=== PATIENT | female | born 1960 | race Caucasian/White ===

== ENCOUNTER 2018-05-15 03:43 | Inpatient (IN) | payer MEDICARE, BC ==
[2018-05-15] MEDS ORDERED: SODIUM CHLORIDE 0.9% 1,000 ML IV STA (03:53)
--- NOTE | 2018-05-15 03:55 | ED ---
Chest Pain HPI - General Stated Complaint: Chest Pain Time Seen by Provider: 05/15/18 03:51 Source: RN notes reviewed, old records reviewed - History of Present Illness Initial Comments: This is a 58-year-old female the ER for evaluation of chest pain severe anterior chest with diaphoresis and shortness of breath. Patient is having significant chest pain currently continuously. Patient's history of high blood pressure high cholesterol, unknown history of heart disease. Patient's brought to emergency room by EMS who stated patient went to a but appears to be A. fib or possibly ventricular tachycardia with that resolved spontaneously. Patient again continues to complain of chest pain recent change in medications or travel history no sick contacts MD Complaint: chest pain -: hour(s) (1) Onset: during rest Pain Location: substernal, left chest Pain Radiation: LUE Severity: severe Severity scale (1-10): 10 Quality: aching, heaviness Consistency: constant Improves With: nothing Worsens With: nothing Anginal Symptoms: diaphoresis, dyspnea Treatments Prior to Arrival: none - Related Data Allergies Allergy/AdvReac Type Severity Reaction Status Date / Time amoxicillin [From Augmentin] Allergy Rash/Hives Verified 05/15/18 04:07 clavulanic acid Allergy Rash/Hives Verified 05/15/18 04:07 [From Augmentin] erythromycin base Allergy Rash/Hives Verified 05/15/18 04:07 IV Contrast-dye Allergy Anaphylaxis Uncoded 05/15/18 04:07 Review of Systems ROS Statement: Those systems with pertinent positive or pertinent negative responses have been documented in the HPI. ROS Other: All systems not noted in ROS Statement are negative. General Exam General appearance: alert, in no apparent distress Head exam: Present: atraumatic, normocephalic, normal inspection Eye exam: Present: normal appearance, PERRL, EOMI. Absent: scleral icterus, conjunctival injection, periorbital swelling ENT exam: Present: normal exam, mucous membranes moist Neck exam: Present: normal inspection. Absent: tenderness, meningismus, lymphadenopathy Respiratory exam: Present: normal lung sounds bilaterally. Absent: respiratory distress, wheezes, rales, rhonchi, stridor Cardiovascular Exam: Present: regular rate, normal rhythm, normal heart sounds. Absent: systolic murmur, diastolic murmur, rubs, gallop, clicks GI/Abdominal exam: Present: soft, normal bowel sounds. Absent: distended, tenderness, guarding, rebound, rigid Extremities exam: Present: normal inspection, full ROM, normal capillary refill. Absent: tenderness, pedal edema, joint swelling, calf tenderness Back exam: Present: normal inspection Neurological exam: Present: alert, oriented X3, CN II-XII intact Psychiatric exam: Present: normal affect, normal mood Skin exam: Present: warm, dry, intact, normal color. Absent: rash Course Vital Signs 05/15/18 05/15/18 05/15/18 04:01 04:10 04:13 Temperature 98.3 F Pulse Rate 90 92 Pulse Rate [ 93 Farm Service Adviser ] Respiratory 19 18 Rate Blood Pressure 145/77 177/94 O2 Sat by Pulse 97 96 Oximetry 05/15/18 04:19 Temperature Pulse Rate 92 Pulse Rate [ Farm Service Adviser ] Respiratory 16 Rate Blood Pressure 159/79 O2 Sat by Pulse 96 Oximetry - Reevaluation(s) Reevaluation #1: 05/15/18 04:23 Code STEMI is paged on patient arrival to emergency room an EKG received. Chest Pain MDM - MDM 58 female the ER for evaluation of chest pain, positive ST elevated [place], [facility] [employer] called in the emergency room, patient be admitted and taken to [facility] for evaluation treatment Critical Care Time Critical Care Time: Yes Total Critical Care Time: 31 Disposition Clinical Impression: ST elevation myocardial infarction (STEMI) Disposition: ADMITTED IP TO THIS HOSP Condition: Serious Is patient prescribed a controlled substance at d/c from ED?: No Referrals: Zackary Neal MD [Primary Care Provider] - 1-2 days
[2018-05-15] MEDS ORDERED: NITROGLYCERIN SL TABS 0.4 MG TAB SUBLINGUAL PRN (04:06)
[2018-05-15] MEDS ORDERED: HEPARIN SODIUM,PORCINE 5,000 UNIT/ML 1 ML VIAL IV ONE (04:06)
[2018-05-15] MEDS ORDERED: ASPIRIN 81 MG PO STA (04:06)
[2018-05-15] MEDS ORDERED: HEPARIN SODIUM,PORCINE 5,000 UNIT/ML 1 ML VIAL IV PRN (04:06)
[2018-05-15] MEDS ORDERED: HEPARIN SOD,PORK IN 0.45% NACL 25,000 UNIT in 0.45% NACL 1 500ML.BAG IV SCH (04:15)
[2018-05-15 04:19] LABS: Basophils % (A) 0 %; Eosinophils # (A) 0.1 k/uL (0-0.7); Eosinophils % (A) 1 %; HCT 40.3 % (34.0-46.0); HGB 13.2 gm/dL (11.4-16.0); Lymphocytes # (A) 0.8 k/uL (1.0-4.8); Lymphocytes % (A) 7 %; MCH 30.2 pg (25.0-35.0); MCHC 32.9 g/dL (31.0-37.0); Mean Platelet Volume 8.6; Monocytes # (A) 0.1 k/uL (0-1.0); Monocytes % (A) 1 %; Neutrophils # (A) 9.9 k/uL (1.3-7.7); Neutrophils % (A) 90 %; Platelet Count 183 k/uL (150-450); RBC 4.38 m/uL (3.80-5.40); RDW 13.4 % (11.5-15.5)
[2018-05-15 04:27] LABS: Partial Thromboplastin Time 23.6 sec (22.0-30.0); Prothrombin Time 10.2 sec (9.0-12.0)
[2018-05-15 04:30] LABS: ALT 19 U/L (9-52); AST 25 U/L (14-36); Albumin 4.2 g/dL (3.5-5.0); Alkaline Phosphatase 74 U/L (38-126); Anion Gap 14 mmol/L; Blood Urea Nitrogen 17 mg/dL (7-17); Calcium 9.5 mg/dL (8.4-10.2); Carbon Dioxide 16 mmol/L (22-30); Chloride 105 mmol/L (98-107); Glucose 221 mg/dL (74-99); Lipase 50 U/L (23-300); Magnesium 2.1 mg/dL (1.6-2.3); Sodium 135 mmol/L (137-145); Total Bilirubin 0.3 mg/dL (0.2-1.3); Total Protein 7.3 g/dL (6.3-8.2)
--- NOTE | 2018-05-15 04:30 | XR ---
EXAMINATION TYPE: XR chest 1V DATE OF EXAM: 05/15/2018 COMPARISON: NONE HISTORY: Chest pain TECHNIQUE: Single frontal view of the chest is obtained. FINDINGS: There is no heart failure nor confluent pneumonic infiltrate. Costophrenic angles are dante r. There are chest leads. There is mild coarsening of the lung markings. IMPRESSION: Possible minimal fibrosis. No heart failure.
[2018-05-15 04:41] LABS: Creatine Kinase MB 0.6 ng/mL (0.0-2.4)
[2018-05-15] MEDS ORDERED: SODIUM CHLORIDE 0.9% 1,000 ML IV ONE (04:50)
[2018-05-15] MEDS ORDERED: IV FLUID CONTINUATION 1,000 ML IV ONE (04:50)
[2018-05-15] MEDS ORDERED: methylPREDNISolone SOD SUCCI 125 MG/2 ML VIAL ONE (04:51)
[2018-05-15] MEDS ORDERED: MIDAZOLAM 2 MG/2 ML VIAL ONE (04:52)
[2018-05-15] MEDS ORDERED: LIDOCAINE 1% INJ 10MG/ML (20 ML MDV) ONE (04:52)
[2018-05-15] MEDS ORDERED: fentaNYL (PF) 50 MCG/ML 2 ML AMP ONE (04:52)
[2018-05-15 04:59] LABS: Troponin I 0.07 ng/mL (0.000-0.034)
[2018-05-15] MEDS ORDERED: diphenhydrAMINE 50 MG/ML 1 ML VIAL IVP ONE (05:00)
[2018-05-15] MEDS ORDERED: methylPREDNISolone SOD SUCCI 125 MG/2 ML VIAL IVP ONE (05:01)
[2018-05-15] MEDS ORDERED: MIDAZOLAM 2 MG/2 ML VIAL IVP ONE (05:02)
[2018-05-15] MEDS ORDERED: LIDOCAINE 1% INJ 10MG/ML (20 ML MDV) SQ ONE (05:03)
[2018-05-15] MEDS ORDERED: IOPAMIDOL-370 125ML BTL INJ ONE (05:23)
[2018-05-15] MEDS ORDERED: RX INFO: IV CONTRAST WAS GIVEN 1 EACH MISC MISCELLANE PRN (05:27)
[2018-05-15] MEDS ORDERED: SODIUM CHLORIDE 0.9% 1,000 ML IV SCH (05:30)
--- NOTE | 2018-05-15 05:41 | P.CRDCN ---
History of Present Illness Consult date: 05/15/18 Chief complaint: Chest pressure History of present illness: This is a 58-year-old female patient who was brought by ambulance to the emergency room because of "heart pounding" and "chest discomfort". The patient was in her usual state of health till last night when she was sitting at home with her family and suddenly she did develop an episode of heart pounding in her chest associated was chest pressure as well as sweating. The chest pressure radiated to her back. It was severe enough for her to call the ambulance who arrived on scene and performed an EKG on the patient which revealed possible atrial fibrillation. I did review the EKG which was not a 12 please EKG from ambulance and that showed wide-complex tachycardia with irregularity and extensive baseline artifact and is is difficult to tell if the patient did have atrial fibrillation on it. Anyway subsequently the patient was transferred to the emergency room here where the subsequent EKG revealed sinus rhythm with [address] segment elevation in the anterior lead and because of that the patient was called as a STEMI. She emergently underwent a heart catheterization which revealed mild triple-vessel coronary artery disease. The procedure was performed from the right groin. The patient does have hypertension. She was seen in the past for intermittent episodes of heart racing and fluttering and she underwent a heart catheterization about 15 years ago at [facility] and according to her that was unremarkable. She does have significant history of smoking and she continues to smoke but she is working on smoking cessation. She does have fairly significant family history of coronary artery disease in both of her parents. Past Medical History Past Medical History: Fibromyalgia, Hypertension Additional Past Medical History / Comment(s): chronic back pain, DDD History of Any Multi-Drug Resistant Organisms: None Reported Past Surgical History: Back Surgery Past Psychological History: No Psychological Hx Reported Smoking Status: Current every day smoker Past Alcohol Use History: None Reported Past Drug Use History: None Reported Medications and Allergies Home Medications Medication Instructions Recorded Confirmed Type Benazepril HCl 40 mg PO 05/15/18 History Cyclobenzaprine [Flexeril] 10 mg PO TID 05/15/18 05/15/18 History FLUoxetine HCL [PROzac] 40 mg PO DAILY 05/15/18 05/15/18 History Metoprolol Tartrate [Lopressor] 50 mg PO TID 05/15/18 05/15/18 History Morphine Sulfate [Ms Contin] 30 mg PO Q8HR 05/15/18 05/15/18 History Allergies Allergy/AdvReac Type Severity Reaction Status Date / Time amoxicillin [From Augmentin] Allergy Rash/Hives Verified 05/15/18 04:07 clavulanic acid Allergy Rash/Hives Verified 05/15/18 04:07 [From Augmentin] erythromycin base Allergy Rash/Hives Verified 05/15/18 04:07 IV Contrast-dye Allergy Anaphylaxis Uncoded 05/15/18 04:07 Physical Exam Vitals: Vital Signs Temp Pulse Pulse Resp BP Pulse Ox 05/15/18 04:36 98.3 F 91 18 161/79 96 05/15/18 04:31 92 18 157/77 94 L 05/15/18 04:19 92 16 159/79 96 05/15/18 04:13 92 18 177/94 96 05/15/18 04:10 93 05/15/18 04:01 98.3 F 90 19 145/77 97 Intake and Output 05/14/18 05/14/18 05/15/18 14:59 22:59 06:59 Other: Weight 86.183 kg - Constitutional General appearance: no acute distress - Respiratory Respiratory: bilateral: CTA - Cardiovascular Rhythm: regular Heart sounds: normal: S1, S2 Abnormal Heart Sounds: systolic murmur Results 05/15/18 03:55 05/15/18 03:55 Cardiac Enzymes 05/15/18 05/15/18 Range/Units 03:55 03:55 AST 25 (14-36) U/L CK-MB (CK-2) 0.6 (0.0-2.4) ng/mL Troponin I 0.070 H* (0.000-0.034) ng/mL Coagulation 05/15/18 Range/Units 03:55 PT 10.2 (9.0-12.0) sec APTT 23.6 (22.0-30.0) sec CBC 05/15/18 Range/Units 03:55 WBC 11.0 H (3.8-10.6) k/uL RBC 4.38 (3.80-5.40) m/uL Hgb 13.2 (11.4-16.0) gm/dL Hct 40.3 (34.0-46.0) % Plt Count 183 (150-450) k/uL Comprehensive Metabolic Panel 05/15/18 Range/Units 03:55 Sodium 135 L (137-145) mmol/L Potassium 4.0 (3.5-5.1) mmol/L Chloride 105 (98-107) mmol/L Carbon Dioxide 16 L (22-30) mmol/L BUN 17 (7-17) mg/dL Creatinine 0.59 (0.52-1.04) mg/dL Glucose 221 H (74-99) mg/dL Calcium 9.5 (8.4-10.2) mg/dL AST 25 (14-36) U/L ALT 19 (9-52) U/L Alkaline Phosphatase 74 (38-126) U/L Total Protein 7.3 (6.3-8.2) g/dL Albumin 4.2 (3.5-5.0) g/dL Current Medications Generic Name Dose Route Start Last Admin Trade Name Freq PRN Reason Stop Dose Admin Aspirin 325 mg 05/16/18 09:00 Aspirin PO DAILY [facility] Atorvastatin Calcium 80 mg 05/15/18 09:00 Lipitor PO DAILY [facility] Heparin Sodium (Porcine) 0 unit 05/15/18 04:06 Heparin IV Q6HR PRN Low PTT Protocol Sodium Chloride 1,000 mls @ 100 mls/hr 05/15/18 03:53 05/15/18 04:17 Saline 0.9% IV 05/15/18 13:52 100 mls/hr .Q10H STA Administration Heparin Sodium/Sodium Chloride 500 mls @ 20 mls/hr 05/15/18 04:15 05/15/18 04 :16 25,000 unit/ Sodium Chloride IV 11.6 units/kg/hr .Q24H JOE 20 mls/hr Administration Protocol Sodium Chloride 1,000 mls @ 100 mls/hr 05/15/18 04:15 Saline 0.9% IV .Q10H JOE Metoprolol Tartrate 25 mg 05/15/18 09:00 Lopressor PO BID JOE Nitroglycerin 0.4 mg 05/15/18 04:06 Nitrostat SUBLINGUAL Q5M PRN Chest Pain Intake and Output 05/14/18 05/14/18 05/15/18 14:59 22:59 06:59 Other: Weight 86.183 kg Patient Weight 05/15/18 06:59 Weight 86.183 kg 05/15/18 03:55 05/15/18 03:55 Assessment and Plan Assessment: Assessment #1 chest discomfort which was resolved #2 possible atrial fibrillation. The EKG from ambulance was of poor quality with extensive artifact. #3 mild nonobstructive coronary artery disease #4 hypertension #5 significant history of smoking Plan #1 continue the current medical regimen #2 monitor the patient for any arrhythmia. She might benefit from either an event monitor as an outpatient or a loop recorder #3 obtain an echocardiogram was Doppler to assess the LV function #4 follow-up with the patient. Thank you for allowing us participate in her care
[2018-05-15 06:05] LABS: Glucose,Whole Blood 166 mg/dL (75-99)
[2018-05-15 06:52] VITALS: BMI 33.8
--- NOTE | 2018-05-15 08:52 | CC ---
CARDIAC CATHETERIZATION REPORT DATE OF SERVICE: May 15, 2018 PERFORMING PHYSICIAN: Homero Bennett MD, publications sales representative. PROCEDURE PERFORMED: 1. Selective right and left coronary angiogram. 2. Left heart catheterization. INDICATION: This is a pleasant 58-year-old female patient who was brought to the emergency room by ambulance after she did have an episode of heart pounding as she describes it associated with the pressure on the chest. The patient was diagnosed with acute ST elevation myocardial infarction and because of that, a heart catheterization was advised. The patient did have about [address]-segment depression in the anterior leads without any reciprocal changes. APPROACH: Right common femoral artery. COMPLICATION: None. LEVEL OF SEDATION: Moderate with sedation length of 18 minutes. PROCEDURE DESCRIPTION: After obtaining an informed consent, the patient was brought to cardiac brick and blocker aid labor. The right common femoral artery was cannulated using micropuncture technique and a micropuncture wire passed easily. Then I placed a 6-Dutch sheath in the right common femoral artery. After that, I did selective right and left coronary angiogram using JR4 and JL4 catheters. Left heart catheterization was performed using 6-Dutch pigtail catheter. The procedure was completed without any complication. SELECTIVE CORONARY ANGIOGRAM: 1. The right coronary artery is a large caliber vessel and it is a dominant vessel. It does have mild disease in the midportion. It distally bifurcates into PDA and PLV branches, both are angiographically normal. 2. The left main is angiographically normal. It bifurcates into the circumflex and left anterior descending artery. 3. The left circumflex is a large caliber vessel. It is a nondominant vessel. The proximal circumflex is normal and gives rise into a large first OM branch which distally has disease appeared to be in the range of 30% to. 4. 40%. The circumflex continued after that as a small-caliber vessel in the AV groove. 5. The LAD: The proximal LAD appeared to have mild disease only. It gives rise into a large first diagonal branch which has ostial disease appeared to be in the range of 30% to 40%. The mid LAD is normal and gives rise into a second diagonal branch which has also ostial disease appeared to be in the range of 30% to 40%. 6. The LAD distally appeared to be angiographically normal. 7. HEMODYNAMICS: The left ventricular end-diastolic pressure was about 12-14 mmHg without any significant gradient across the aortic valve. CONCLUSION: 1. Mild disease involving the right coronary artery. 2. Mild disease involving the left main coronary artery appeared to be in the range of 20% to 30%. 3. Mild disease involving the left circumflex also appeared to be in the range of 20- 30%. 4. Mild disease involving the first and second diagonal branch of the LAD as well. POSTPROCEDURE MANAGEMENT: 1. Maximize medical treatment. 2. Aggressive cholesterol control. 3. Follow up with the patient. MMODL / IJN: [id number] /
[2018-05-15] MEDS: SODIUM CHLORIDE 0.9% 1,000 ML IV SCH ×2 (09:13→16:28)
[2018-05-15] MEDS: ACETAMINOPHEN TAB 500 MG TAB PO PRN ×2 (09:13→21:48)
[2018-05-15] MEDS: ATORVASTATIN 80 MG TAB PO SCH (09:13)
[2018-05-15] MEDS: FLUoxetine HCL 20 MG CAP PO SCH (09:14)
[2018-05-15] MEDS: METOPROLOL TARTRATE 25 MG TAB PO SCH ×2 (09:14→21:48)
[2018-05-15] MEDS: MORPHINE SULFATE ER 30 MG TABLET PO SCH ×2 (09:15→16:27)
[2018-05-15] MEDS: CYCLOBENZAPRINE 10 MG TAB PO SCH ×3 (10:35→21:48)
[2018-05-15 11:52] LABS: Mean Platelet Volume 8.1; Platelet Count 200 k/uL (150-450)
[2018-05-15] MEDS ORDERED: NAPROXEN 250 MG TAB PO STA (12:17)
[2018-05-15 12:26] LABS: Creatine Kinase MB 1.1 ng/mL (0.0-2.4)
[2018-05-15 12:31] LABS: Troponin I 0.037 ng/mL (0.000-0.034)
[2018-05-15] MEDS: diphenhydrAMINE 25 MG CAP PO PRN (12:34)
--- NOTE | 2018-05-15 15:13 | HP ---
HISTORY AND PHYSICAL SUBJECTIVE: This is a white female. She is status post cardiac catheterization for chest pain, which was a normal heart catheterization. She is complaining of headaches due to possible fibromyalgia or neck pain. She has severe in her neck and throughout her back, she states. She is also concerned about PAD issue with her legs that is different than her normal neuropathy pain down her legs. She had arrhythmia when with EMS. Cardiology took her for a heart catheterization from the ER. She is back on the floor at this time, wanting something for a headache. Apparently a chest x-ray was negative, also. ALLERGIES: 1. AUGMENTIN. 2. ERYTHROMYCIN. REVIEW OF SYSTEMS: Fourteen-point review of systems negative except for fibromyalgia pain. She is a well female in no acute distress. CARDIOVASCULAR: S1, S2. LUNGS: Clear. GI: Soft. HEMATOLOGY: Negative Homans. PSYCH: Fair mood and affect. NEUROLOGIC: Alert and oriented x3. SKIN: Warm, dry, intact. VITAL SIGNS: Temperature 98.3, pulse 90 to 92, respiratory rate 18 to 20, and blood pressure 140s to 170s over 70s to 90s. ASSESSMENT: 1. Possible [id number]-vassblmnu myocardial infarction. 2. Fibromyalgia. 3. Chronic headaches secondary to possible cervical neuritis. 4. Diabetes mellitus. Give Tylenol for headaches. Continue with current treatment, medicine, muscle relaxants, cholesterol pills. Please see further orders. ICU time 45 minutes. MMARTIEL / IJN: [id number] /
[2018-05-15 16:53] LABS: Creatine Kinase MB 1.4 ng/mL (0.0-2.4)
[2018-05-15 16:54] LABS: Troponin I 0.04 ng/mL (0.000-0.034)
[2018-05-15] MEDS ORDERED: SODIUM CHLORIDE 0.65% NASAL SPRAY 44 ML BTL NASAL PRN (21:54)
[2018-05-16] MEDS: MORPHINE SULFATE ER 30 MG TABLET PO SCH ×4 (00:05→23:11)
[2018-05-16] MEDS: diphenhydrAMINE 25 MG CAP PO PRN (00:09)
[2018-05-16] MEDS: LISINOPRIL 20 MG TAB PO SCH (06:04)
[2018-05-16] MEDS: SODIUM CHLORIDE 0.9% 1,000 ML IV SCH ×3 (06:04→21:05)
[2018-05-16 06:49] LABS: Mean Platelet Volume 8.3; Platelet Count 189 k/uL (150-450)
[2018-05-16 07:08] LABS: Cholesterol 213 mg/dL (<200); HDL Cholesterol 55 mg/dL (40-60); LDL Cholesterol,Calculated 132 mg/dL (0-99); Triglycerides 131 mg/dL (<150)
[2018-05-16] MEDS: ATORVASTATIN 80 MG TAB PO SCH (08:19)
[2018-05-16] MEDS: METOPROLOL TARTRATE 25 MG TAB PO SCH (08:20)
[2018-05-16] MEDS: ASPIRIN 325 MG TAB PO SCH (08:22)
[2018-05-16] MEDS: FLUoxetine HCL 20 MG CAP PO SCH (08:26)
[2018-05-16] MEDS: CYCLOBENZAPRINE 10 MG TAB PO SCH ×3 (08:26→21:11)
--- NOTE | 2018-05-16 08:53 | ECHOF ---
Referral Reason:chest pain/ afib, s/p heart cath MEASUREMENTS -------- HEIGHT: 167.6 cm WEIGHT: 94.8 kg BP: 151/80 RVIDd: 2.1 cm (< 3.3) IVSd: 1.6 cm (0.6 - 1.1) LVIDd: 5.0 cm (3.9 - 5.3) LVPWd: 1.5 cm (0.6 - 1.1) IVSs: 2.0 cm LVIDs: 3.2 cm LVPWs: 1.7 cm LAESV Index (A-L): 32.74 ml/m Ao Diam: 3.1 cm (2.0 - 3.7) AV Cusp: 2.0 cm (1.5 - 2.6) LA Diam: 3.6 cm (2.7 - 3.8) MV EXCURSION: 12.039 mm (> 18.000) MV EF SLOPE: 89 mm/s (70 - 150) EPSS: 0.5 cm MV E Nayan: 1.07 m/s MV DecT: 164 ms MV A Nayan: 0.95 m/s MV E/A Ratio: 1.13 RAP: 5.00 mmHg RVSP: 22.84 mmHg FINDINGS -------- Sinus rhythm. This was a technically good study. The left ventricular size is normal. There is moderate concentric left ventricular hypertrophy. O verall left ventricular systolic function is normal with, an EF between 55 - 60 %. The right ventricle is normal in size and function. The left atrium is normal in size. The right atrium is normal in size. Aortic valve is trileaflet and is mildly thickened. The mitral valve leaflets are mildly thickened. Mild mitral regurgitation is present. Mild tricuspid regurgitation present. The right ventricular systolic pressure, as measured by Doppl er, is 22.84mmHg. Pulmonic valve appears structurally normal. The aortic root size is normal. Normal inferior vena cava with normal inspiratory collapse consistent with estimated right atrial pre ssure of 5 mmHg. The pericardium is normal. CONCLUSIONS -------- 1. Sinus rhythm. 2. This was a technically good study. 3. The left ventricular size is normal. 4. There is moderate concentric left ventricular hypertrophy. 5. Overall left ventricular systolic function is normal with, an EF between 55 - 60 %. 6. The right ventricle is normal in size and function. 7. The left atrium is normal in size. 8. The right atrium is normal in size. 9. Aortic valve is trileaflet and is mildly thickened. 10. The mitral valve leaflets are mildly thickened. 11. Mild mitral regurgitation is present. 12. Mild tricuspid regurgitation present. 13. The right ventricular systolic pressure, as measured by Doppler, is 22.84mmHg. 14. Pulmonic valve appears structurally normal. 15. The aortic root size is normal. 16. Normal inferior vena cava with normal inspiratory collapse consistent with estimated right atrial pressure of 5 mmHg. 17. The pericardium is normal. NEGATIVE CUTTER: Belén Henao RDCS
--- NOTE | 2018-05-16 14:44 | P.PN ---
Subjective Progress Note Date: 05/16/18 This patient is admitted to the hospital with altered patient's lasting about an hour. According to the EKG taken by the paramedics, patient was jackson fibrillation. Patient was seen and evaluated by Dr. Fischer. Apparently the rhythm strips had several artifacts and could not be properly interpreted. Patient had wide complex tachycardia. Subsequently, patient had a cardiac catheterization and was not found to have any significant obstructive disease. There are 20-30% stenosis of the left main and also circumflex. Patient is advised to maximal medical therapy. She was put on JUAN RAMON inhibitor and beta octaviano. Patient's troponin was mildly elevated and could be secondary to supply and demand mismatch. Patient wants to have a definite diagnosis. Patient could have event monitor and if that doesn't show any significant arrhythmias, may be candidate for loop recorder insertion. Meanwhile we'll continue with the beta octaviano and JUAN RAMON inhibitor hours. Her blood pressure is not well controlled. I will add Norvasc 5 mg Objective - Vital Signs Vital signs: Vital Signs Temp 96.4 F L 05/16/18 12:00 Pulse 71 05/16/18 12:00 Resp 18 05/16/18 12:00 BP 165/76 05/16/18 12:00 Pulse Ox 96 05/16/18 12:00 Intake & Output 05/15/18 05/16/18 05/16/18 18:59 06:59 18:59 Intake Total 1560 360 Output Total 600 Balance 960 360 Weight 95.1 kg 91.6 kg Intake: IV 1200 Sodium Chloride 0.9% 1, 1200 000 ml @ 100 mls/hr IV . Q10H [facility] Rx#:[id number] Oral 360 360 Output: Urine 600 Other: Voiding Method Toilet Toilet Toilet # Voids 1 2 2 - Exam GENERAL EXAM: Patient is alert and oriented and doesn't appear to be in any acute distress HEENT: Normocephalic. Normal reaction of pupils, equal size, normal range of extraocular motion. No erythema or exudates in the throat. NECK: No masses, no nuchal rigidity. CHEST: No chest wall deformity. LUNGS: Equal air entry with no crackles or wheeze. HEART: S1 and S2 normal with no audible mumurs or gallops. Regular rhythm, femorals equal on both sides.. ABDOMEN: No hepatosplenomegaly, normal bowel sounds, no guarding or rigidity. SKIN: No rashes CENTRAL NERVOUS SYSTEM: No focal deficits. EXTREMITIES: No cyanosis, clubbing or edema. - Labs CBC & Chem 7: 05/16/18 05:26 05/15/18 03:55 Labs: Abnormal Lab Results - Last 24 Hours (Table) 05/15/18 05/16/18 Range/Units 16:02 05:26 Troponin I 0.040 H* (0.000-0.034) ng/mL Cholesterol 213 H (<200) mg/dL LDL Cholesterol, Calc 132 H (0-99) mg/dL Assessment and Plan (1) Cardiac arrhythmia Current Visit: Yes Status: Acute Code(s): I49.9 - CARDIAC ARRHYTHMIA, UNSPECIFIED SNOMED Code(s): 938857189 (2) Troponin level elevated Current Visit: Yes Status: Acute Code(s): R74.8 - ABNORMAL LEVELS OF OTHER SERUM ENZYMES SNOMED Code(s): 349651384 (3) Atrial fibrillation Current Visit: Yes Status: Acute Code(s): I48.91 - UNSPECIFIED ATRIAL FIBRILLATION SNOMED Code(s): 92762804 Plan: Patient is admitted with elevated troponin and palpitations. There is suspected atrial fibrillation from the monitor strips from paramedics. Cardiac cath did not reveal any significant obstructive disease. There is mild plaque in the left main and circumflex. Patient wants definitive diagnosis. She is going to have event monitor. If given monitor doesn't reveal any arrhythmias, may be considered for a loop recorder insertion
[2018-05-16] MEDS: METOPROLOL TARTRATE 50 MG TAB PO SCH ×2 (15:22→21:11)
[2018-05-16] MEDS: amLODIPine 5 MG TAB PO SCH (15:22)
[2018-05-16 16:33] LABS: Glucose,Whole Blood 133 mg/dL (75-99)
[2018-05-16] MEDS: FAMOTIDINE 20 MG TAB PO SCH (21:11)
[2018-05-16] MEDS: HEPARIN SODIUM,PORCINE 5,000 UNIT/ML 1 ML VIAL SQ SCH (21:11)
--- NOTE | 2018-05-16 23:41 | PN ---
PROGRESS NOTE DATE OF SERVICE: 05/16/2018. HISTORY: She has been hemodynamically stable. She denies any chest pain today. The patient has had no further arrhythmias while in the hospital. PHYSICAL EXAMINATION: Respiratory rate is 18, pulse rate is 73, temperature 98.1, blood pressure 147/67, O2 saturation on room air is 97%. HEENT is unremarkable. Chest is clear. Cardiovascular system is S1, S2. Abdomen is soft. There is no pedal edema. IMPRESSION: 1. Suspected atrial fibrillation. 2. Chest pain for which the patient has been seen by Cardiology. 3. Obesity with possible obstructive sleep apnea that may be contributing to overall symptomatology. PLAN: At this point in time, plan is for a possible event monitor. Cardiac catheterization done shows mild coronary artery disease in the right coronary and left coronary, but not clinically significant in any of her vessels. Continue current medications which were reviewed. Increase her activity level. Discharge planning is for tomorrow. She is otherwise stable. MMODL / IJN: [id number] /
[2018-05-17] MEDS: SODIUM CHLORIDE 0.9% 1,000 ML IV SCH (04:09)
[2018-05-17 06:38] LABS: Mean Platelet Volume 8.6; Platelet Count 158 k/uL (150-450)
[2018-05-17 07:07] LABS: Anion Gap 4 mmol/L; Blood Urea Nitrogen 20 mg/dL (7-17); Calcium 8.6 mg/dL (8.4-10.2); Carbon Dioxide 27 mmol/L (22-30); Chloride 110 mmol/L (98-107); Glucose 88 mg/dL (74-99); Magnesium 2.3 mg/dL (1.6-2.3); Potassium 4.8 mmol/L (3.5-5.1); Sodium 141 mmol/L (137-145)
[2018-05-17] MEDS ORDERED: NA PHOS,M-B/NA PHOS,DI-BA 133 ML ENEMA RECTAL ONE (07:15)
[2018-05-17] MEDS: FAMOTIDINE 20 MG TAB PO SCH ×2 (09:33→21:35)
[2018-05-17] MEDS: MORPHINE SULFATE ER 30 MG TABLET PO SCH ×3 (09:33→23:38)
[2018-05-17] MEDS: amLODIPine 5 MG TAB PO SCH ×2 (09:34→21:35)
[2018-05-17] MEDS: ATORVASTATIN 80 MG TAB PO SCH (09:34)
[2018-05-17] MEDS: CYCLOBENZAPRINE 10 MG TAB PO SCH ×3 (09:34→21:36)
[2018-05-17] MEDS: METOPROLOL TARTRATE 50 MG TAB PO SCH ×2 (09:34→21:36)
[2018-05-17] MEDS: ASPIRIN 325 MG TAB PO SCH (09:34)
[2018-05-17] MEDS: LISINOPRIL 20 MG TAB PO SCH (09:34)
[2018-05-17] MEDS: FLUoxetine HCL 20 MG CAP PO SCH (09:35)
[2018-05-17] MEDS: HEPARIN SODIUM,PORCINE 5,000 UNIT/ML 1 ML VIAL SQ SCH ×2 (09:35→21:35)
[2018-05-17] MEDS: CHLORTHALIDONE 25 MG TAB PO SCH (15:40)
--- NOTE | 2018-05-17 16:26 | PN ---
PROGRESS NOTE This patient's medical record is reviewed. The rhythm strips from EMS are also reviewed. Patient was brought to the hospital with chest pain and palpitations. The monitor strip obtained by EMS is suggestive of wide QRS complex tachycardia. Whether that represents atrial fibrillation with a rapid rate versus ventricular tachycardia is unclear. This patient has been having intermittent episodes of palpitations and shortness of breath for many years. Patient's cardiac catheterization did not show any significant abnormality. Patient remains stable. There was no evidence of acute myocardial infarction. I will increase the dose of Lopressor to 100 mg b.i.d. Patient will be given a 30-day event monitor. We will also make an appointment with Dr. Hubbard for further evaluation in view of the significant symptomatic palpitations. MMODL / IJN: [id number] /
--- NOTE | 2018-05-17 22:03 | PN ---
PROGRESS NOTE This patient came to the hospital with wide QRS complex tachycardia, atrial fibrillation. Cardiac catheterization was normal. No myocardial infarction. Lopressor has been increased to 100 b.i.d. per Cardiology. A 30-day event monitor has been ordered. She will follow up as an outpatient. Kosher Dietary Service Supervisor saw her. Blood pressure 147/67, oxygen 97% on room air, pulse 73, respiratory rate 18, temperature 98.1. Abdomen is soft. Chest is clear. CARDIAC: S1, S2. ASSESSMENT: 1. Atrial fibrillation. 2. Atypical chest pain. 3. Obesity. 4. Obstructive sleep apnea. She will be discharged home tomorrow if she is medically stable from pulmonary and cardiac points of view. MMODL / IJN: [id number] /
[2018-05-18] MEDS: diphenhydrAMINE 25 MG CAP PO PRN ×2 (01:50→23:15)
[2018-05-18] MEDS ORDERED: MAGNESIUM HYDROXIDE 2,400 MG/10 ML CUP PO PRN (07:12)
[2018-05-18] MEDS: FAMOTIDINE 20 MG TAB PO SCH ×2 (10:30→20:12)
[2018-05-18] MEDS: MORPHINE SULFATE ER 30 MG TABLET PO SCH ×3 (10:30→23:15)
[2018-05-18] MEDS: ATORVASTATIN 80 MG TAB PO SCH (10:31)
[2018-05-18] MEDS: CYCLOBENZAPRINE 10 MG TAB PO SCH ×3 (10:31→20:11)
[2018-05-18] MEDS: CHLORTHALIDONE 25 MG TAB PO SCH (10:31)
[2018-05-18] MEDS: ASPIRIN 81 MG PO SCH (10:31)
[2018-05-18] MEDS: amLODIPine 5 MG TAB PO SCH ×2 (10:31→20:11)
[2018-05-18] MEDS: LISINOPRIL 20 MG TAB PO SCH (10:31)
[2018-05-18] MEDS: FLUoxetine HCL 20 MG CAP PO SCH (10:32)
[2018-05-18] MEDS: HEPARIN SODIUM,PORCINE 5,000 UNIT/ML 1 ML VIAL SQ SCH ×2 (10:32→20:12)
[2018-05-18] MEDS: METOPROLOL TARTRATE 50 MG TAB PO SCH ×2 (10:35→20:12)
--- NOTE | 2018-05-18 16:17 | P.PN ---
Subjective Progress Note Date: 05/18/18 Is a 58-year-old female brought to the hospital with symptoms of chest discomfort. She does have a history of hypertension, nicotine dependence , and family history of premature coronary artery disease. She was taken to the cardiac catheterization lab on Thursday, found to have mild disease involving the RCA, left main, circumflex, and first and second diagonal branch of the LAD, medical therapy was advised. The patient's monitor strips have been reviewed, it appears that the ones obtained by EMS were suggestive of a wide complex tachycardia which could #represent A. fib with RVR versus ventricular tachycardia which is actually unclear at this time. Patient had no evidence of an acute myocardial infarction. At the time of discharge home, patient will be given an event monitor. She feels well today, no chest pain, no palpitations, no arrhythmias noted on the monitor. Medically she stable. Objective - Vital Signs Vital signs: Vital Signs Temp 97.7 F 05/18/18 12:00 Pulse 65 05/18/18 12:00 Resp 18 05/18/18 12:00 BP 147/70 05/18/18 12:00 Pulse Ox 94 L 05/18/18 12:00 Intake & Output 05/17/18 05/18/18 05/18/18 18:59 06:59 18:59 Intake Total 720 360 Output Total 500 Balance 220 360 Weight 91.1 kg Intake: IV 0 Sodium Chloride 0.9% 1, 0 000 ml @ 100 mls/hr IV . Q10H [facility] Rx#:[id number] Oral 720 360 Output: Urine 500 Other: Voiding Method Toilet Toilet Toilet # Voids 1 1 2 - Exam PHYSICAL EXAMINATION: GENERAL: 58-year-old female in no acute distress at the time of my examination HEENT: Head is atraumatic, normocephalic. Pupils equal, round. Sclera anicteric. Conjunctiva are clear. Mucous membranes of the mouth are moist. Neck is supple. There is no elevated jugular venous pressure.] bruit is heard. HEART EXAMINATION: Heart S1, S2 normal. No murmur or gallop heard. CHEST EXAMINATION: Lungs are clear to auscultation and precussion. No chest wall tenderness is noted on palpation or with deep breathing. ABDOMEN: Soft, nontender. Bowel sounds are heard. No organomegaly noted. EXTREMITIES: 2+ peripheral pulses with no evidence of peripheral edema and no calf tenderness noted. NEUROLOGIC patient is awake, alert and oriented ?-3. . - Labs CBC & Chem 7: 05/17/18 06:05 05/17/18 06:05 Assessment and Plan Plan: Assessment #1 chest discomfort, no evidence of an acute myocardial infarction #2 wide complex tachycardia, either atrial fibrillation or ventricular tachycardia #3 mild nonobstructive coronary artery disease #4 hypertension #5 significant history of smoking Plan Will monitor the patient for another 24 hours, plan for possible discharge home in the morning. At the time of discharge we do recommend the patient have a 30 day event monitor. Follow-up appointment in the office post discharge. DNP note has been reviewed, I agree with a documented findings and plan of care. Patient was seen and examined.
--- NOTE | 2018-05-18 23:57 | PN ---
PROGRESS NOTE HISTORY: Awaiting cardiology clearance prior to being discharged. She is having some chest discomfort. She had a wide complex tachycardia and atrial fibrillation. Was given an event monitor. Awaiting for possible discharge. PHYSICAL EXAM: Temp 97.7, pulse 60s, respiratory rate 16 to 18, blood pressure 147/70, O2 saturation 94% on room air. ASSESSMENT: 1. Atypical chest discomfort. 2. Wide complex tachycardia, either atrial fibrillation or ventricular tachycardia. 3. Mild nonobstructive coronary artery disease. 4. Hypertension. PLAN: Monitor for another 24 hours on the monitor. If no significant arrhythmias, Cardiology will clear in the morning. MMODL / IJN: [id number] /
[2018-05-19 09:10] VITALS: RESP 16; TEMP 97.7
[2018-05-19] MEDS: amLODIPine 5 MG TAB PO SCH (09:12)
[2018-05-19] MEDS: ASPIRIN 81 MG PO SCH (09:12)
[2018-05-19] MEDS: CHLORTHALIDONE 25 MG TAB PO SCH (09:12)
[2018-05-19] MEDS: MORPHINE SULFATE ER 30 MG TABLET PO SCH ×2 (09:13→16:55)
[2018-05-19] MEDS: CYCLOBENZAPRINE 10 MG TAB PO SCH ×2 (09:13→16:56)
[2018-05-19] MEDS: FAMOTIDINE 20 MG TAB PO SCH (09:13)
[2018-05-19] MEDS: METOPROLOL TARTRATE 50 MG TAB PO SCH (09:13)
[2018-05-19] MEDS: FLUoxetine HCL 20 MG CAP PO SCH (09:13)
[2018-05-19] MEDS: ATORVASTATIN 80 MG TAB PO SCH (09:14)
[2018-05-19] MEDS: LISINOPRIL 20 MG TAB PO SCH (09:14)
[2018-05-19] MEDS: HEPARIN SODIUM,PORCINE 5,000 UNIT/ML 1 ML VIAL SQ SCH (09:14)
--- NOTE | 2018-05-19 12:30 | P.PN ---
Subjective Progress Note Date: 05/19/18 Is a 58-year-old female brought to the hospital with symptoms of chest discomfort. She does have a history of hypertension, nicotine dependence , and family history of premature coronary artery disease. She was taken to the cardiac catheterization lab on Thursday, found to have mild disease involving the RCA, left main, circumflex, and first and second diagonal branch of the LAD, medical therapy was advised. The patient's monitor strips have been reviewed, it appears that the ones obtained by EMS were suggestive of a wide complex tachycardia which could #represent A. fib with RVR versus ventricular tachycardia which is actually unclear at this time. Patient had no evidence of an acute myocardial infarction. At the time of discharge home, patient will be given an event monitor. She feels well today, no chest pain, no palpitations, no arrhythmias noted on the monitor. Medically she stable. 05/19/2018 Patient was seen and examined this morning, doing well, no arrhythmias documented on the monitor. From our perspective she may be able to be discharged home today. We will recommend her to have a 30 day event monitor on discharge. Follow-up appointment in the office. Objective - Vital Signs Vital signs: Vital Signs Temp 97.7 F 05/19/18 08:35 Pulse 70 05/19/18 08:35 Resp 16 05/19/18 08:35 BP 123/58 05/19/18 08:35 Pulse Ox 97 05/19/18 08:35 Intake & Output 05/18/18 05/19/18 05/19/18 18:59 06:59 18:59 Intake Total 600 Balance 600 Weight 88.5 kg Intake: IV 0 Sodium Chloride 0.9% 1, 0 000 ml @ 100 mls/hr IV . Q10H [facility] Rx#:[id number] Oral 600 Other: Voiding Method Toilet Toilet # Voids 3 1 - Exam PHYSICAL EXAMINATION: GENERAL: 58-year-old female in no acute distress at the time of my examination HEENT: Head is atraumatic, normocephalic. Pupils equal, round. Sclera anicteric. Conjunctiva are clear. Mucous membranes of the mouth are moist. Neck is supple. There is no elevated jugular venous pressure.] bruit is heard. HEART EXAMINATION: Heart S1, S2 normal. No murmur or gallop heard. CHEST EXAMINATION: Lungs are clear to auscultation and precussion. No chest wall tenderness is noted on palpation or with deep breathing. ABDOMEN: Soft, nontender. Bowel sounds are heard. No organomegaly noted. EXTREMITIES: 2+ peripheral pulses with no evidence of peripheral edema and no calf tenderness noted. NEUROLOGIC patient is awake, alert and oriented ?-3. . - Labs CBC & Chem 7: 05/17/18 06:05 05/17/18 06:05 Assessment and Plan Plan: Assessment #1 chest discomfort, no evidence of an acute myocardial infarction #2 wide complex tachycardia, either atrial fibrillation or ventricular tachycardia #3 mild nonobstructive coronary artery disease #4 hypertension #5 significant history of smoking Plan From cardiology's perspective, patient may be be discharged home today. We will recommend a 30 day event monitor on discharge. Follow-up appointment post discharge. DNP note has been reviewed, I agree with a documented findings and plan of care. Patient was seen and examined.
[2018-05-19 15:54] VITALS: BP 132/62; PULSE 65
== END 2018-05-19 18:45 | disposition home or self-care (01) | DRG 287 ==
LOC: EC 03:43 → 2SICU 04:06 → 3SCARD 19:02
PROVIDERS: ADMIT Family Medicine; ATTEND Family Medicine
PROC: B2111ZZ Fluoroscopy of Multiple Coronary Arteries using Low Osmolar Contrast (ICD-10-PCS; 2018-05-15)
PROC: 4A023N7 Measurement of Cardiac Sampling and Pressure, Left Heart, Percutaneous Approach (ICD-10-PCS; principal; 2018-05-15 04:35)
DX: I48.91 Unspecified atrial fibrillation (principal); I25.110 Atherosclerotic heart disease of native coronary artery with unstable angina pectoris; I47.2 Ventricular tachycardia; E11.40 Type 2 diabetes mellitus with diabetic neuropathy, unspecified; I08.3 Combined rheumatic disorders of mitral, aortic and tricuspid valves; I11.9 Hypertensive heart disease without heart failure; E78.00 Pure hypercholesterolemia, unspecified; G47.33 Obstructive sleep apnea (adult) (pediatric); M79.7 Fibromyalgia; G89.29 Other chronic pain; M54.9 Dorsalgia, unspecified; R51 Headache; M54.12 Radiculopathy, cervical region; R74.8 Abnormal levels of other serum enzymes; E66.9 Obesity, unspecified; Z68.31 Body mass index [BMI] 31.0-31.9, adult; F17.210 Nicotine dependence, cigarettes, uncomplicated; Z71.6 Tobacco abuse counseling; Z79.899 Other long term (current) drug therapy; Z88.8 Allergy status to other drugs, medicaments and biological substances; Z88.0 Allergy status to penicillin; Z88.1 Allergy status to other antibiotic agents; Z91.041 Radiographic dye allergy status; Z82.49 Family history of ischemic heart disease and other diseases of the circulatory system
CPT/HCPCS: 36415; 71045; 80048; 80053; 80061; 82550; 82553; 83690; 83735; 83880; 84484; 85025; 85049; 85610; 85730; 93005; 93306; 93458; 96365; 96376; 99291